=== PATIENT | male | born 1955 | race Caucasian/White ===

== ENCOUNTER 2016-06-29 22:45 | Inpatient (IN) | payer BC ==
[~2016-06-29] VITALS: Ht 170.2 cm; Wt 142.7 kg
[~2016-06-29 22:45] MED LIST: FUROSEMIDE40 MG PO; JANUMET 50/51 TABLET PO; PREDNISONE20 MG PO; SIMVASTATIN40 MG PO
[2016-06-29 23:30] LABS: MCH 29.3 PG (29.0-34.0); MCHC 34.5 G/DL (30.0-36.0); MCV 84.8 FL (86-99); MEAN PLAT.VOLUME 8.7 uM^3 (9.0-12.4); PLATELET COUNT 195 K/uL (156-360); RBC DIS.WIDTH-SD 39.8 % (39-53); RED BLOOD COUNT 5.19 M/uL (4.00-5.50)
[2016-06-29 23:39] LABS: CHLORIDE 96 mEq/L (99-109); POTASSIUM 3.9 mEq/L (3.7-5.4); SODIUM 134 mEq/L (136-147)
[2016-06-29 23:40] LABS: GLUCOSE 259 mg/dL (70-99)
[2016-06-29 23:42] LABS: ANION GAP 12 MEQ/L (2-14)
[2016-06-29 23:44] LABS: GFR ESTIMATE (CALCULATED) > 59 mL/min/
[2016-06-29 23:45] LABS: UREA NITROGEN (BUN) 10 mg/dL (9-23)
[2016-06-29 23:51] LABS: TROP-I INTERPRETATION POSITIVE
[2016-06-29 23:54] LABS: TROPONIN-I 26.35 ng/mL (0.0-0.30)
[2016-06-30] VITALS (21 sets, daily range): BP systolic 97–148; BP diastolic 43–89
[2016-06-30 00:30] LABS: EOSINOPHIL (%) 0.3 % (0-5); HEMATOCRIT 43.4 % (38.0-50.0); IMMATURE GRANULOCYTE (%) 0.3 % (0.0-0.7); IMMATURE GRANULOCYTE COUNT 0.3 K/uL; LYMPHOCYTE COUNT 2.7 K/uL (1.0-2.8); MCH 29.7 PG (29.0-34.0); MCV 84.8 FL (86-99); MEAN PLAT.VOLUME 8.8 uM^3 (9.0-12.4); MONOCYTE (%) 6.4 % (3-12); MONOCYTE COUNT 0.8 K/uL (0-0.8); NEUTROPHIL (%) 70.5 % (45-76); NEUTROPHIL COUNT 8.4 K/uL (1.8-6.4); PLATELET COUNT 184 K/uL (156-360); RBC DIS.WIDTH-CV 12.8 % (11.8-14.6); RBC DIS.WIDTH-SD 38.9 % (39-53); RED BLOOD COUNT 5.12 M/uL (4.00-5.50); WHITE BLOOD COUNT 11.9 K/uL (4.1-10.2)
[2016-06-30 00:41] LABS: INTER. NORMALIZED RATIO 1.1; PROTHROMBIN TIME 10.8 (9.2-11.2); PTT 27.8 (25-32)
[2016-06-30 00:44] LABS: AMYLASE 23 IU/L (1-118)
[2016-06-30 00:49] LABS: SERUM ETHYL ALCOHOL < 10 mg/dL
[2016-06-30 00:53] LABS: LIPASE 25 U/L (1.0-51.0)
[2016-06-30 00:54] LABS: TROP-I INTERPRETATION POSITIVE
[2016-06-30 00:55] LABS: TROPONIN-I 27.76 ng/mL (0.0-0.30)
[2016-06-30 04:41] LABS: METH RESISTANT S AUREUS PCR NEGATIVE (NEGATIVE)
[2016-06-30 04:47] LABS: PROBE CHECK PASS; SPECIMEN PROCESSING CONTROL PASS
[2016-06-30 06:36] LABS: TROP-I INTERPRETATION POSITIVE; TROPONIN-I 111.31 ng/mL (0.0-0.30)
[2016-06-30 07:06] LABS: CK-MB 63.2 ng/mL (0.0-4.9)
[2016-06-30 07:10] LABS: ALKALINE PHOSPHATASE 45 IU/L (3-129); DIRECT BILIRUBIN 0.3 mg/dL (0.0-0.3); TOTAL CK 1652 IU/L (1-294)
[2016-06-30 07:15] LABS: CREATINE KINASE 1652 IU/L (1-294)
[2016-06-30 09:17] LABS: POINT-OF-CARE METER ID UU14162636
[2016-06-30 10:10] LABS: CHLORIDE 97 MEQ/L (99-109); GFR ESTIMATE (CALCULATED) > 59 mL/min/; GLUCOSE 287 mg/dL (70-99); POTASSIUM 3.7 MEQ/L (3.7-5.4); SODIUM 134 MEQ/L (136-147); UREA NITROGEN (BUN) 10 mg/dL (9-23)
[2016-06-30 10:18] LABS: ANION GAP 12 MEQ/L (2-14)
[2016-06-30 12:45] LABS: TROP-I INTERPRETATION POSITIVE
[2016-06-30 12:49] LABS: TROPONIN-I 73.06 ng/mL (0.0-0.30)
[2016-06-30 13:33] LABS: TOTAL CK 1581 IU/L (1-294)
[2016-06-30 13:38] LABS: CREATINE KINASE 1581 IU/L (1-294)
[2016-06-30 13:48] LABS: CK-MB 36.4 ng/mL (0.0-4.9)
[2016-06-30 18:13] LABS: TROP-I INTERPRETATION POSITIVE
[2016-06-30 18:18] LABS: TROPONIN-I 44.82 ng/mL (0.0-0.30)
[2016-06-30 18:20] LABS: CREATINE KINASE 831 IU/L (1-294); TOTAL CK 831 IU/L (1-294)
[2016-06-30 19:38] LABS: CK-MB 23.5 ng/mL (0.0-4.9)
[2016-06-30 22:51] LABS: POINT-OF-CARE METER ID UU13113731
[2016-07-01] VITALS: BP 99/67
[2016-07-01 05:41] VITALS: BP 100/50
[2016-07-01 07:44] LABS: ALKALINE PHOSPHATASE 41 IU/L (3-129); ANION GAP 11 MEQ/L (2-14); CHLORIDE 101 MEQ/L (99-109); DIRECT BILIRUBIN 0.2 mg/dL (0.0-0.3); GFR ESTIMATE (CALCULATED) > 59 mL/min/; GLUCOSE 228 mg/dL (70-99); HDL CHOLESTEROL 26 MG/DL (Desirable>=40); LDL CHOLESTEROL 91 mg/dL (Desirable<100); NON-HDL CHOLESTEROL 121 mg/dL (Desirable<160); POTASSIUM 3.8 MEQ/L (3.7-5.4); SAMPLE HEMOLYSIS CHECK 0; SAMPLE ICTERIC CHECK 0; SAMPLE LIPEMIA CHECK 0; SODIUM 134 MEQ/L (136-147); TOTAL BILIRUBIN 1.1 MG/DL (0.0-1.0); TOTAL CHOLESTEROL 147 mg/dL (Desirable<200); TRIGLYCERIDES 148 MG/DL (Normal: <150); UREA NITROGEN (BUN) 19 mg/dL (9-23)
[2016-07-01 07:51] LABS: Estimated Average Glucose 217 mg/dL (70-123); HEMOGLOBIN A1c (GLYCOHEMOGLOB) 9.2 % HGB (Below 5.7)
[2016-07-01 07:52] LABS: EOSINOPHIL (%) 0.5 % (0-5); EOSINOPHIL COUNT 0.1 K/uL (0-0.3); HEMATOCRIT 37.2 % (38.0-50.0); IMMATURE GRANULOCYTE (%) 0.4 % (0.0-0.7); LYMPHOCYTE COUNT 2.7 K/uL (1.0-2.8); MCH 30.1 PG (29.0-34.0); MCHC 34.7 G/DL (30.0-36.0); MCV 86.7 FL (86-99); MEAN PLAT.VOLUME 9.5 uM^3 (9.0-12.4); MONOCYTE (%) 7.6 % (3-12); MONOCYTE COUNT 0.7 K/uL (0-0.8); NEUTROPHIL (%) 61.6 % (45-76); NEUTROPHIL COUNT 5.6 K/uL (1.8-6.4); PLATELET COUNT 153 K/uL (156-360); RBC DIS.WIDTH-CV 13.3 % (11.8-14.6); RED BLOOD COUNT 4.29 M/uL (4.00-5.50); WHITE BLOOD COUNT 9.2 K/uL (4.1-10.2)
[2016-07-01 08:00] VITALS: BP 105/57
[2016-07-01 11:37] VITALS: BP 116/59
[2016-07-01 15:50] VITALS: BP 122/77
[2016-07-01 21:03] VITALS: BP 144/86
[2016-07-02 00:31] VITALS: BP 111/60
[2016-07-02 05:32] VITALS: BP 118/61
[2016-07-02 09:07] VITALS: BP 102/56
[2016-07-02 11:54] VITALS: BP 110/63
[2016-07-02] MEDS ORDERED: ASPIR-LOW81 MG PO (13:59)
[2016-07-02] MEDS ORDERED: CARVEDILOL6.25 MG PO (13:59)
[2016-07-02] MEDS ORDERED: ATORVASTATIN CA80 MG PO (13:59)
[2016-07-02] MEDS ORDERED: NITROSTAT0.4 MG SL (13:59)
[2016-07-02] MEDS ORDERED: LISINOPRIL5 MG PO (13:59)
[2016-07-02] MEDS ORDERED: EFFIENT10 MG PO (13:59)
== END 2016-07-02 15:45 | disposition home or self-care (01) | DRG 247 ==
LOC: EME 22:45 → CATH 06-30 00:50 → 2SOUTH 06-30 02:06 → 4EAST 06-30 02:06 → 4WEST 06-30 02:14 → 4EAST 06-30 23:26
PROVIDERS: Emergency Medicine; Internal Medicine Cardiovascular Disease
DX: I21.29 ST elevation (STEMI) myocardial infarction involving other sites (principal); Z68.42 Body mass index [BMI] 45.0-49.9, adult; K76.0 Fatty (change of) liver, not elsewhere classified; E11.9 Type 2 diabetes mellitus without complications; E66.01 Morbid (severe) obesity due to excess calories; E78.5 Hyperlipidemia, unspecified; I25.10 Atherosclerotic heart disease of native coronary artery without angina pectoris; R74.0 Nonspecific elevation of levels of transaminase and lactic acid dehydrogenase [LDH]; Z91.19 Patient's noncompliance with other medical treatment and regimen
CPT/HCPCS: 71020; 80048; 80061; 80076; 81003; 82150; 82550 91; 82553; 82948; 83036; 83690; 84484; 85025; 85027; 85347; 85610; 85730; 86850; 86900; 86901; 87641; 93005; 93306; 94799; 99281; 99285; C1725; C1769; C1874; C1887; G0480; J0282; J0461; J1644; J1815; J2250; J2270; J3010; J3246; J7030